=== PATIENT | female | born 1965 | race Caucasian/White ===

== ENCOUNTER → 2017-01-14 | Outpatient (CLI) | payer OTHER ==
[~2017-01-14] MED LIST: ADVAIR 100-501 EACH INH; FLONASE ALLER15.8 ML; INDERAL LA60 MG PO; MEGA BIOTIN10000 MCG PO; MULTI-DAY PLUS1 EACH PO; NORCO 5-325 TA1 EACH PO; PREVACID 24HR15 MG PO; PROVENTIL HFA 61 INH INH; VALACYCLOVIR500 MG PO; WELCHOL625 MG PO; ZYRTEC10 MG PO
== END ==
LOC: LAB 12:32
DX: Z02.1 Encounter for pre-employment examination (principal)
CPT/HCPCS: 86706

== ENCOUNTER → 2017-02-18 | Outpatient (CLI) | payer BC | LOC: MAMO 13:00 | DX: Z12.31 Encounter for screening mammogram for malignant neoplasm of breast (principal) | CPT/HCPCS: G0202 ==

== ENCOUNTER → 2017-02-24 | Outpatient (CLI) | payer BC ==
[2017-02-24 07:45] LABS: RED BLOOD COUNT 4.6 M/UL (4.00-5.10); WHITE BLOOD COUNT 7.1 K/UL (4.5-11.0)
[2017-02-24 08:18] LABS: BUN/CREATININE RATIO 18 (0-10)
== END ==
LOC: LAB 07:16
PROVIDERS: Nurse Practitioner Family
DX: E53.8 Deficiency of other specified B group vitamins (principal); E78.5 Hyperlipidemia, unspecified; E55.9 Vitamin D deficiency, unspecified
CPT/HCPCS: 36415; 80048; 80061; 80076; 82607; 84443; 85025

== ENCOUNTER → 2017-04-05 | Outpatient (CLI) | payer BC | LOC: KOH-I 04-01 08:30 → MRI 14:30 | DX: D17.39 Benign lipomatous neoplasm of skin and subcutaneous tissue of other sites (principal); M79.631 Pain in right forearm; M79.89 Other specified soft tissue disorders | CPT/HCPCS: 73220; A9577 ==

== ENCOUNTER → 2017-06-27 | Day surgery (SDC) | payer BC ==
[~2017-06-27] VITALS: Ht 158.8 cm; Wt 93.4 kg
== END | disposition home or self-care (01) ==
LOC: OR 08:15
PROVIDERS: Orthopaedic Surgery
PROC: 0HBDXZZ Excision of Right Lower Arm Skin, External Approach (ICD-10-PCS; principal; 2017-06-27 14:45)
DX: D17.21 Benign lipomatous neoplasm of skin and subcutaneous tissue of right arm (principal); K21.9 Gastro-esophageal reflux disease without esophagitis; E66.9 Obesity, unspecified; Z68.37 Body mass index [BMI] 37.0-37.9, adult; Z87.442 Personal history of urinary calculi; Z82.49 Family history of ischemic heart disease and other diseases of the circulatory system; Z83.3 Family history of diabetes mellitus; Z79.899 Other long term (current) drug therapy; Z90.49 Acquired absence of other specified parts of digestive tract
CPT/HCPCS: J0690; J2250; J3010; J7030; J7120

== ENCOUNTER → 2020-12-09 | Outpatient (CLI) | payer BC, OTHER ==
[~2020-12-09] MED LIST changes: +BENADRYL 25MG C25 MG PO; +PREDNISONE20 MG PO
[2020-12-09 08:15] LABS: HEMOGLOBIN 15.4 gm/dl (12.3-15.3); RED BLOOD COUNT 4.75 M/UL (4.00-5.10); WHITE BLOOD COUNT 5.4 K/UL (4.5-11.0)
[2020-12-09 08:43] LABS: BUN/CREATININE RATIO 17 (0-10)
[2020-12-13 01:09] LABS: HER-2/NEU QUANTITATIVE ELISA 10.5 ng/mL (0.0-15.0)
== END ==
LOC: LAB 07:41
PROVIDERS: Family Medicine
DX: J45.909 Unspecified asthma, uncomplicated (principal)
CPT/HCPCS: 36415; 80053; 82390; 83950; 84630; 85025; 85379; 85384; 86140

== ENCOUNTER → 2021-03-31 | Outpatient (CLI) | payer BC, OTHER ==
[2021-03-31 08:37] LABS: HEMOGLOBIN 14.9 gm/dl (12.3-15.3); RED BLOOD COUNT 4.61 M/UL (4.00-5.10); WHITE BLOOD COUNT 5.3 K/UL (4.5-11.0)
[2021-03-31 08:59] LABS: BUN/CREATININE RATIO 22 (0-10)
[2021-04-03 00:09] LABS: HER-2/NEU QUANTITATIVE ELISA 10.9 ng/mL (0.0-15.0)
== END ==
LOC: LAB 07:16
PROVIDERS: Family Medicine
DX: C50.919 Malignant neoplasm of unspecified site of unspecified female breast (principal); E28.0 Estrogen excess; D68.59 Other primary thrombophilia
CPT/HCPCS: 36415; 80053; 82390; 82679; 83615; 83950; 84630; 85027; 85379; 85384; 86140

== ENCOUNTER → 2021-08-26 | Outpatient (CLI) | payer BC ==
[2021-08-26 10:35] LABS: HEMOGLOBIN 14.5 gm/dl (12.3-15.3); RED BLOOD COUNT 4.29 M/UL (4.00-5.10); WHITE BLOOD COUNT 6.3 K/UL (4.5-11.0)
[2021-08-26 13:16] LABS: BUN/CREATININE RATIO 19 (0-10)
[2021-08-27 08:14] LABS: CERULOPLASMIN 22.3 mg/dL (19.0-39.0)
[2021-08-27 09:14] LABS: VITAMIN D, 25-HYDROXY 82.7 ng/mL (30.0-100.0)
[2021-08-27 14:15] LABS: THYROGLOBULIN ANTIBODY <1.0 IU/mL (0.0-0.9); THYROID PEROXIDASE (TPO) AB <8 IU/mL (0-34)
[2021-08-28 16:14] LABS: HER-2/NEU QUANTITATIVE ELISA 10.9 ng/mL (0.0-15.0)
== END ==
LOC: LAB 08:20
PROVIDERS: Family Medicine
DX: C50.919 Malignant neoplasm of unspecified site of unspecified female breast (principal); E55.9 Vitamin D deficiency, unspecified; R68.89 Other general symptoms and signs; L85.3 Xerosis cutis; R53.83 Other fatigue; L65.9 Nonscarring hair loss, unspecified
CPT/HCPCS: 36415; 80053; 82390; 83615; 83950; 84439; 84443; 84481; 84630; 85027; 85379; 85384; 86140; 86376; 86800